=== PATIENT | male | born 1965 | race Caucasian/White ===

== ENCOUNTER 2023-08-22 06:18 | Day surgery (SDC) | payer OTHER ==
[~2023-08-22] VITALS: Ht 182.9 cm; Wt 124.3 kg
[~2023-08-22 06:18] MED LIST: AMBIEN10 MG PO; ATENOLOL50 MG PO; LATANOPROST0.005 % OU; LISINOPRIL20 M1 PO; MELOXICAM7.5 MG PO; METFORMIN500 M2 PO; OMEPRAZOLE DR40 MG PO; PERCOCET 10/31 COMBO PO; SPIRIVA RE1.25 MCG/A IH; VIBRAMYCIN100 M2 PO
[2023-08-22 07:34] VITALS: BP 122/82
== END 2023-08-22 08:32 | disposition home or self-care (01) ==
LOC: ORM 06:18
PROVIDERS: ATTEND Student in an Organized Health Care Education/Training Program
DX: G89.4 Chronic pain syndrome (principal); Z53.09 Procedure and treatment not carried out because of other contraindication